=== PATIENT | female | born 1965 | race Caucasian/White ===

== ENCOUNTER 2024-07-08 23:47 | Inpatient (IN) | payer MEDICARE, OTHER, SELFPAY ==
[2024-07-08 21:04] VITALS: BP 148/89
[2024-07-08 21:27] LABS: % Basophils 0.2 % (0-2); % Immature Granulocytes 0.7 % (0-0.5); % Lymphocytes 28.6 % (20.5-51.1); % Monocytes 12.3 % (1.7-9.3); % Neutrophils 58.2 % (42.2-75.2); Absolute Lymphocytes 1.6 10^3/uL (1.2-3.4); Absolute Monocytes 0.7 10^3/uL (0.1-0.6); Absolute Neutrophils 3.2 10^3/uL (1.4-6.5); Hematocrit 26.7 % (37.0-47.0); Hemoglobin 9.4 g/dL (12.0-16.0); Mean Corp Hgb Conc. 35.2 g/dL (33.0-37.0); Mean Corpuscular Hgb 30.9 pg (27.0-31.0); Mean Corpuscular Volume 87.8 fL (81.0-99.0); Mean Platelet Volume 10.2 fL (7.4-10.4); Nucleated Red Blood Cells % 0 %; Platelet Count 236 10^3/uL (130-400); Red Blood Cell Count 3.04 10^6/uL (4.20-5.40); Red Cell Dist. Width 12.9 % (11.5-14.5); White Blood Cell Count 5.5 10^3/uL (4.8-10.8)
[2024-07-08 21:41] LABS: ALT (SGPT) 11 U/L (0-35); AST (SGOT) 23 U/L (14-36); Albumin 3.7 g/dl (3.5-5.0); Alkaline Phosphatase 54 U/L (38-126); Blood Urea Nitrogen 20 mg/dl (7-17); Calcium 9.8 mg/dl (8.4-10.2); Carbon Dioxide 25 mmol/L (22-30); Chloride 92 mmol/L (98-107); Glucose 106 mg/dl (70-99); Potassium 4.7 mmol/L (3.5-5.1); Sodium 125 mmol/L (135-145); Total Bilirubin 0.3 mg/dl (0.2-1.3); Total Protein 5.9 g/dl (6.3-8.2); eGFR 34.12
[2024-07-08 21:54] LABS: Troponin I < 0.012 ng/ml
[2024-07-08 22:06] VITALS: BMI 26.2
[2024-07-08 22:14] VITALS: BP 181/102
--- NOTE | 2024-07-08 22:46 | ED.GENMED ---
History of Present Illness
General
Chief Complaint: Blood Pressure Problem
Source: patient
Exam Limitations: none
Time Seen by Provider: 07/08/24 22:15
History of Present Illness
History of Present Illness:
59-year-old female presents complaining of fatigue and dizziness worsening over several days. She denies chest pain abdominal pain or shortness of breath. She was told recently by her doctor that her outpatient blood work was abnormal and the way
that she was anemic. She also is being followed for kidney dysfunction. She is not on anything for blood pressure. She is on psychiatric medications including Clozaril, Depakote, Klonopin.
Phy Exam
Physical Exam
Physical Exam:
General: Well-appearing female no acute respiratory distress
HEENT: Normocephalic atraumatic
Heart: Regular rate and rhythm no murmurs
Lungs: Clear no wheeze abdomen is soft nontender nondistended no guarding rebound normal bowel sounds
Extremities: No cyanosis or edema
Skin: Warm no rash
Course
Orders/Labs/Results
Orders:
Orders
07/08/24 21:08
Electrocardiogram (*1) Urgent
Reason for Study: Vertigo / Dizzy
07/08/24 21:09
EKG- Treatment ONCE
07/08/24 21:18
Type+Screen Urgent
Complete Blood Count/With Diff Urgent
Comprehensive Metabolic Panel Urgent
Serum Osmolality Urgent
Comment: ADD ON
Troponin I Urgent
07/08/24 22:28
Urine Sodium Urgent
07/08/24 22:29
Osmolality, Random Urine Urgent
07/08/24 22:36
Add On- LAB Urgent
Tests Added?: serum osmolality
Abnormal Lab Results
07/08/24
21:18
RBC 3.04 L 10^6/uL
(4.20-5.40)
Hgb 9.4 L g/dL
(12.0-16.0)
Hct 26.7 L %
(37.0-47.0)
Absolute Monos (auto) 0.7 H 10^3/uL
(0.1-0.6)
Immature Gran % 0.7 H %
(0-0.5)
Monocytes % 12.3 H %
(1.7-9.3)
Sodium 125 L mmol/L
(135-145)
Chloride 92 L mmol/L
(98-107)
BUN 20 H mg/dl
(7-17)
Creatinine 1.7 H mg/dL
(0.6-1.0)
Glucose 106 H mg/dl
(70-99)
Total Protein 5.9 L g/dl
(6.3-8.2)
07/08/24 21:18
07/08/24 21:18
Vital Signs
Initial and Last Documented VS:
Initial Vital Signs
Temp Pulse Resp BP Pulse Ox
98.3 F 99 18 148/89 99
07/08/24 21:04 07/08/24 21:04 07/08/24 21:04 07/08/24 21:04 07/08/24 21:04
Last Documented Vital Signs
Temp Pulse Resp BP Pulse Ox
98.3 F 88 12 148/89 99
07/08/24 21:04 07/08/24 22:11 07/08/24 22:11 07/08/24 21:04 07/08/24 22:11
MDM/Problems Addressed
Differential Diagnosis Includes:
Fatigue and weakness. Patient was told she was anemic as an outpatient. Differential could include anemia versus electrolyte abnormality versus worsening kidney function
Check labs. Sodium is 125 hemoglobin is 9.4 creatinine is 1.7. She is never been here before. Patient admits only drinking 3 regular bottles of water a day. Will check a urine sodium and osmolality as well as serum osmolality. Will fluid
restrict for now admit to hospital for hyponatremia
*Critical Care Note
Total Time (30-74mins, 75-104mins- exclusive of procedures): Not Applicable
ED Attending Note
-
Portions of this chart may have been created with voice recognition software.� Occasional wrong word or��sound alike� substitutions may have occurred due to the inherent limitations of voice recognition software.
Discharge Plan
Departure
Patient Disposition: Admit
Date of Disposition: 07/08/24
Time of Disposition: 22:51
Admit to: Telemetry
Presentation/result/management discussed w/ accepting MD/DO: Hospitalist
Discharge Problem:
Acute hyponatremia
Referrals:
Sergo Wright MD [Family Provider] -
Interventions
Interventions:
*Risk Screen - Suicide Last Done: 07/08/24 22:06
*General Assessment Last Done: 07/08/24 21:04
*Neglect/Abuse Screening Last Done: 07/08/24 22:06
ED- Fall Risk Assessment Last Done: 07/08/24 22:06
*ED COVID-19 Vaccine History Last Done: 07/08/24 22:06
ED- Cardiac Assessment Last Done: 07/08/24 22:06
ED- Neurological Assessment Last Done: 07/08/24 22:06
ED- Pulmonary Assessment Last Done: 07/08/24 22:06
Discharge Date and Time
Print Language: ITALIAN
[2024-07-08 23:00] VITALS: BP 178/98
[2024-07-08 23:10] LABS: Osmolality Serum 263 mOsm/kg (275-300)
--- NOTE | 2024-07-08 23:31 | W.PN.UPDATE ---
Update Note
Progress Note Update
Patient seen in conjunction with GAS ENGINE REPAIRER. Agree with findings on history and physical exam. Also agree with the assessment and plan unless stated otherwise.
Briefly this is a 59-year-old female with past medical history of schizoaffective disorder on multiple psychotropics and antidepressants, who also apparently has a history of orthostatic hypotension previously treated with Florinef and had been on
sodium chloride supplementation presents to the emergency department with episode of hypotension at home. Patient reports that cloth shrinking tester has been asking her to follow-up blood pressure. In the past she has had low episodes of blood pressure but
she did stop taking Florinef and sodium chloride not too long ago. She said her blood pressure has been rising and today was the highest it has been. That is why she came to the emergency department. She has a longstanding history of orthostatic
dizziness which she stays because only when she stands or walks. She reports Effexor was discontinued a couple days ago due to being on too many medications. She also reports that she has a pending workup for decreased kidney function with pending
ultrasound and labs. She follows with nephrology at this time.
In the emergency department she was hypertensive to 181/100, pulse of 77, temperature was 90.3 she satting 100% on room air. CBC was notable for a hemoglobin of 9.4 but otherwise unremarkable. Chemistries notable for a sodium of 125, BUN of 26 and
a creatinine of 1.7. Troponin is negative.
1. Hyponatremia - Likely chronic to subacute and given history of hypertension and antidepressant use suspect SIADH. She looks euvolemic.
- admit to telemetry
- urine osmolarity and sodium
- orthostatic vs, check cortisol, tsh and depakote levels
- if not orthostatic will fluid restrict to 1440ml free water daily
- nephrology consult
2. Hypertension - Rising BP for unclear reasons. Recently stopped florinef and salt tabs
- check orthostatic, if not orthostatic then will treat bp with low dose norvasc
- check albumin leel and u/a for proteinuria, no edema on exam so less likely nephrotic
3. Renal dysfunction - Known dysfunction with ongoing outpatient w/u and u/s pending
- u/a, urine protein,
- due to ongoing w/u will consult nephrology for additional testing
- avoid nephrotoxins
4. Psych
- continue her clozaril, depakote, klonopin, seroquel
5. Anemia - mild anemia Hgb 9.4. No history of gi bleed.
- w/u with iron studies, b12/folate
DVT PPX - lovenox sq
Full Code
--- NOTE | 2024-07-08 23:37 | HPS.HSE ---
Family Physician
-
Family Physician: Sergo Wright
Chief Complaint
-
Dizziness and Elevated Blood Pressure
History of Present Illness
Patient is a 59 y/o female past medical history of psychoaffective disorder who presents with dizziness and elevated blood pressure. Patient reports ongoing issues with dizziness which was initially associated with low pressures. She previously was
taking sodium tablets as well Florinef for low blood pressure, and what sounds like orthostatic hypotension. Patient notes about a month ago she stopped the sodium tablets and Florinef as her blood pressure has been running high. Patient reports
she recently started seeing a kidney specialist for kidney disease work-up, and had blood work done earlier this week. Patient reports she stopped her Effexor at the direction of her psychiatrist due to concerns of polypharmacy. Today her blood
pressure was more elevated than previously and she came to the emergency department for evaluation. Work-up revealed sodium level 125. Patient denies any prior known history of low sodium. She reports drinks about 56-64oz of fluid per day.
Medical History
Past Medical History
Past Medical History: Reports Other
Additional Past Medical History:
Psychoaffective Disorder
Chronic Kidney Disease
Chronic Anemia
Past Surgical History: Reports None
Social History
Tobacco: Former Smoker (Quit over 20 years ago)
Family History
Family History: Other (Sister: Anemia)
Allergies / Home Medications
Allergies reflects when Allergies were last updated in [employer].
Home Medications with original date entered in [employer]
Allergy/Medication List:
Allergies
Allergy/AdvReac Type Severity Reaction Status Date / Time
No Known Allergies Allergy Unverified 07/08/24 21:04
Home Medications
clonazepam 0.5 mg tablet (Klonopin) 0.5 mg PO DAILY 07/08/24
clozapine 100 mg tablet (Clozaril) 300 mg PO DAILY 07/08/24
clozapine 100 mg tablet (Clozaril) 500 mg PO HS 07/08/24
divalproex 500 mg tablet,delayed release (Depakote) 500 mg PO BID 07/08/24
quetiapine 400 mg tablet (Seroquel) 400 mg PO BID 07/08/24
Review of Systems
-
A 12 point ROS was completed and negative except as noted: Yes
Constitutional: Denies Fever or Chills
Respiratory: Denies Cough or Trouble Breathing
Cardiac: Denies Chest Pain or Palpitations
Abdomen/GI: Denies Abdominal Pain, Nausea or Vomiting
Physical Exam
Vital Signs
Vital Signs
Temp Pulse Resp BP Pulse Ox
98.3 F 77 15 178/98 100
07/08/24 21:04 07/08/24 23:15 07/08/24 23:15 07/08/24 23:00 07/08/24 23:15
Physical Exam
General: Comfortable and Conversant
HEENT: Anicteric and Moist mucous membranes
Respiratory: Clear and Non Labored Respirations
Cardiac: S1/S2 and Regular Rhythm
GI: Soft and Non Tender
Rectal: Deferred by Provider
Musculoskeletal: No Clubbing, No Cyanosis and No Edema
Skin: Warm and Dry
Neuro: Awake, Alert, Oriented and Nonfocal/grossly intact
Psych: Calm
Laboratory Results
-
07/08/24 21:18
07/08/24 21:18
Laboratory Results
Total Bilirubin 0.3 mg/dl (0.2-1.3) 07/08/24 21:18
AST 23 U/L (14-36) 07/08/24 21:18
ALT 11 U/L (0-35) 07/08/24 21:18
Alkaline Phosphatase 54 U/L (38-126) 07/08/24 21:18
Troponin I < 0.012 ng/ml 07/08/24 21:18
Data Reviewed
-
Lab Data: Labs Reviewed by me
Impression/Plan
-
Hyponatremia
-Reported symptoms seem more chronic than acute
-Check urine sodium, and urine osmo
-Check TSH, and AM Cortisol
-Fluid Restriction 48oz/day
-Recheck sodium in AM
-Consult Nephrology
Uncontrolled Hypertension
-Patient reports some symptoms of orthostasis
-Check orthostatic VS
-Consider starting oral antihypertensives if orthostatic VS are negative
Psychoaffective Disorder
-Recently stopped Effexor
-Continue clonazepam, clozapine, Depakote and Seroquel
Chronic Kidney Disease, unknown baseline
-Patient recently started seeing Nephrology to begin work-up
Normocytic Anemia
-Check iron studies, vitamin b12 and folic acid
DVT proph: SCDs
Code Status: Full Code
[2024-07-08 23:53] LABS: Iron 53 ug/dl (37-170)
[2024-07-08 23:59] LABS: Depakane 64.3 ug/ml (50.0-120.0)
[2024-07-09] VITALS (12 sets, daily range): BP systolic 94–192; BP diastolic 55–103; PULSE 88–97; O2SAT 100; BMI 25.2
[2024-07-09 00:02] LABS: Percent Saturation 17 % (20-50); Total Iron Binding Capacity 303 ug/dl (265-497)
[2024-07-09 00:30] LABS: Ferritin 49.3 ng/ml (11.1-264.0)
[2024-07-09 01:01] LABS: Folate 11.8 ng/ml (2.76-20); Vitamin B12 634 pg/ml (239-931)
--- NOTE | 2024-07-09 01:37 | PTCARENOTE ---
During her admission to the floor pt. stated that she was 'having chest pain which comes and goes sometimes.' EKG done per protocol which showed pt. was in NSR. Provider notifed. VSS and pt. is resting comfortably at this time. Plan of care
continues.
[2024-07-09 06:52] LABS: Hematocrit 27.7 % (37.0-47.0); Hemoglobin 9.7 g/dL (12.0-16.0); Mean Corpuscular Hgb 31.1 pg (27.0-31.0); Mean Corpuscular Volume 88.8 fL (81.0-99.0); Mean Platelet Volume 10.3 fL (7.4-10.4); Platelet Count 228 10^3/uL (130-400); Red Blood Cell Count 3.12 10^6/uL (4.20-5.40); Red Cell Dist. Width 12.8 % (11.5-14.5); White Blood Cell Count 7.6 10^3/uL (4.8-10.8)
[2024-07-09 07:18] LABS: Blood Urea Nitrogen 20 mg/dl (7-17); Calcium 9.8 mg/dl (8.4-10.2); Carbon Dioxide 26 mmol/L (22-30); Chloride 93 mmol/L (98-107); Estimated Creatinine Clearance 28 ml/min; Glucose 111 mg/dl (70-99); Potassium 3.8 mmol/L (3.5-5.1); Sodium 129 mmol/L (135-145); eGFR 34.12
[2024-07-09 07:51] LABS: Cortisol, Random 10.2 ug/dl; TSH Reflex To Free T4 2.29 uIU/ml (0.47-4.68)
[2024-07-09] MEDS: DEPAKOTE (12 HR RELEASE) 500 MG PO ×2 (08:44→20:49)
[2024-07-09] MEDS: KLONOPIN 0.5 MG PO (08:44)
[2024-07-09] MEDS: SEROQUEL 400 MG PO ×2 (08:44→20:49)
--- NOTE | 2024-07-09 09:48 | W.PN.HOSP.TC ---
Today's Communication/Plan
-
Monitor sodium. Nephrology consult
Assessment / Plan
Assessment / Plan
Physical Exam
General: Comfortable and Conversant
HEENT: Anicteric and Moist mucous membranes
Respiratory: Clear and Non Labored Respirations
Cardiac: S1/S2 and Regular Rhythm
GI: Soft and Non Tender
Rectal: Deferred by Provider
Musculoskeletal: No Clubbing, No Cyanosis and No Edema
Skin: Warm and Dry
Neuro: Awake, Alert, Oriented and Nonfocal/grossly intact
Psych: Calm
A/P:
Hyponatremia
-Reported symptoms seem more chronic than acute
-Check urine sodium, and urine osmo--> pending
-Check TSH, and AM Cortisol--> 2.29 and 10.2
-Fluid Restriction 48oz/day
-Recheck sodium in AM. Na 125-->129
-Consult Nephrology
Uncontrolled Hypertension
-Patient reports some symptoms of orthostasis
-Check orthostatic VS
-Consider starting oral antihypertensives if orthostatic VS are negative
Psychoaffective Disorder
-Recently stopped Effexor
-Continue clonazepam, clozapine, Depakote and Seroquel
Chronic Kidney Disease, unknown baseline
-Patient recently started seeing Nephrology to begin work-up
-Nephrology consulted
Normocytic Anemia
-Check iron studies, vitamin b12 and folic acid---> ferritin 49.3, saturation 17, TIBC 303, iron 53, B12 634, folate 11.8
DVT proph: SCDs
Code Status: Full Code
Anticipated Discharge: 24 - 48 hours
Subjective/Interval History
-
Date of Service: July 09, 2024
Denies cp or sob, n/v. No cp/sob
Objective Data
-
Labs:
Laboratory Results
07/09/24
06:29
WBC 7.6
Hgb 9.7 L
Hct 27.7 L
Plt Count 228
Sodium 129 L
Potassium 3.8
Chloride 93 L
Carbon Dioxide 26
BUN 20 H
Creatinine 1.7 H
Glucose 111 H
Calcium 9.8
Vital Signs:
Vital Signs
Temp Pulse Resp BP Pulse Ox
97.7 F 100 16 145/84 99
07/09/24 07:15 07/09/24 07:15 07/09/24 07:15 07/09/24 07:15 07/09/24 07:15
I&O
07/08/24 07/09/24 07/10/24
06:59 06:59 06:59
Intake Total 480 / 480
Balance 480 / 480
[2024-07-09] MEDS: CLOZARIL 300 MG PO (10:41)
--- NOTE | 2024-07-09 12:37 | W.CON.NEPH ---
Consultation
-
Date/Time Consultation Requested: 07/08/24 2330
Date/Time Consultation Performed: 07/09/24 1345
Requesting Provider: Jinny Yang
Performing Provider: Marian Cunningham
Reason for Consultation: hyponatremia, HTN, high cr
Medical History
-
Chief Complaint: dizziness, high BPs
History of Present Illness:
59 y/o female past medical history of psychoaffective disorder on multiple meds clozaril, klonopin, seroquel, depakote, chr hyponatremia on salt tab and FR who presents to ER with dizziness and elevated blood pressure 07/08. Patient reports ongoing
issues with dizziness associated with orthostatic hypotension and was on Florinef. Also has CKD last cr was 1.3 in 2021 lost f/u with nephro until recently seen in May with cr 1.9. Her BPs were high with out orthostatic and was recommended to see
her psychiatrist. She eventually came off Florinef, salt tab and Effexor. DUring this time her FR liberated to 48ounces/day for JORGE and normal sodium. She was noted to have fe def anemia and was to supposed to have IV fe infusion. Yesterday her
blood pressure was more elevated than previously and she came to the emergency department for evaluation. Work-up revealed sodium level 125. She reports drinks 48oz per day.
BP were as high as 190/100s improved to 150s with out meds. She placed on FR now her sodium at 129. Her cr noted at 1.7.
She offers no CP or sob, no KWAN. chr vision issues with no worsening. No n/v. No abd pain. Has mild difficulty to urinate on bed car but better on commode. no LE edema. no change in chr dizziness. He sodium in diet is not controlled since she eats
processed foods and can not cook.
Past Medical History
psychoaffective disorder
Chronic Kidney Disease
Chronic Anemia
Orthostatic hypotension
Chr hyponatremia
Past Surgical History: Other (tonsillectomy, endoscopy)
Social History
Tobacco: Former Smoker (quit 20 yrs ago)
Alcohol: None
Drug: None
Living: Alone (mother helps her)
Family History
sister anemia and CKD from Li
Allergies / Home Medications
Allergy/AdvReac Type Severity Reaction Status Date / Time
No Known Allergies Allergy Unverified 07/08/24 21:04
�Medication �Instructions �Recorded �Confirmed �Type
clonazepam 0.5 mg tablet (Klonopin) 0.5 mg PO DAILY Anxiety 07/08/24 07/08/24 History
clozapine 100 mg tablet (Clozaril) 300 mg PO DAILY Neurological 07/08/24 07/08/24 History
Condition
clozapine 100 mg tablet (Clozaril) 500 mg PO HS Neurological Condition 07/08/24 07/08/24 History
divalproex 500 mg tablet,delayed 500 mg PO BID Seizures 07/08/24 07/08/24 History
release (Depakote)
quetiapine 400 mg tablet (Seroquel) 400 mg PO BID Neurological 07/08/24 07/08/24 History
Condition
Review of Systems
-
All other complete ROS have been inquired and found negative other than state din HPI
Physical Exam
Vital Signs
Vital Signs
Temp Pulse Resp BP Pulse Ox
97.8 F 95 16 152/90 96
07/09/24 11:05 07/09/24 11:05 07/09/24 11:05 07/09/24 11:05 07/09/24 11:05
Lab Results
WBC 7.6 10^3/uL (4.8-10.8) 07/09/24 06:29
RBC 3.12 10^6/uL (4.20-5.40) L 07/09/24 06:29
Hgb 9.7 g/dL (12.0-16.0) L 07/09/24 06:29
Hct 27.7 % (37.0-47.0) L 07/09/24 06:29
Plt Count 228 10^3/uL (130-400) 07/09/24 06:29
Sodium 129 mmol/L (135-145) L 07/09/24 06:29
Potassium 3.8 mmol/L (3.5-5.1) 07/09/24 06:29
Chloride 93 mmol/L (98-107) L 07/09/24 06:29
Carbon Dioxide 26 mmol/L (22-30) 07/09/24 06:29
BUN 20 mg/dl (7-17) H 07/09/24 06:29
Creatinine 1.7 mg/dL (0.6-1.0) H 07/09/24 06:29
eGFR 34.12 07/09/24 06:29
Glucose 111 mg/dl (70-99) H 07/09/24 06:29
Calcium 9.8 mg/dl (8.4-10.2) 07/09/24 06:29
Albumin 3.7 g/dl (3.5-5.0) 07/08/24 21:18
Abnormal Lab Results
07/08/24 07/09/24
21:18 06:29
RBC 3.04 L 3.12 L
Hgb 9.4 L 9.7 L
Hct 26.7 L 27.7 L
MCH 31.1 H
Absolute Monos (auto) 0.7 H
Immature Gran % 0.7 H
Monocytes % 12.3 H
Sodium 125 L 129 L
Chloride 92 L 93 L
BUN 20 H 20 H
Creatinine 1.7 H 1.7 H
Glucose 106 H 111 H
Serum Osmolality 263 L
% Saturation 17 L
Total Protein 5.9 L
Physical Exam
General: Awake, Alert, Oriented, AOx3, No Distress and Nontoxic
HEENT: EOMI, Anicteric, Conjunctivae Clear, Neck Supple and No JVD
Respiratory: Clear, Normal Excursion and Nonlabored Respirations
Cardiac: S1/S2 and Regular Rate/Rhythm
Breast: Deferred by me
Abdomen: Soft, Nontender and Nondistended
Musculoskeletal: No Cyanosis and No Edema
Skin: No Rash
Neuro: Nonfocal/Grossly Intact
Psych: Mood/afflect pleasant, Insight/judgement good and Appropriate
Assessment/Plan
-
IMP:
Acute on chronic Hyponatremia
Uncontrolled Hypertension
JORGE with Chronic Kidney Disease [id number] -baseline not clear 1.3 in 2021-Dr Espinoza
h/o orthostasis was on Florinef
chr dizziness
schizoaffective Disorder-Recently stopped Effexor
Normocytic Anemia-fe def
SHPTH
Plan:
A/w dizziness and HTN
Pt follows me in the office but had lost f/u from 2021 until recently seen in May, cr was at 1.9, hb 9.5
her FR were lifted to 48ounces/day for JORGE
hyponatremia -improving with FR since admit, cont same , TSH and cortisol were ok
check U osmo, U na
JORGE-cr slightly better from before, unclear if she has progressive CKD
check UA, bladder scan, U CPR, UPEP with VANESSA
HTN- known orthostatic hypotension but lately high Bps
remains off florinef and effexor
neg orthostatic vitals, likely start low dose of BB
some of it could be from anxiety too
Anemia-check UPEP, out pt SPEP was neg
start IV fe course
she is on multiple psych meds, consider psych eval if possible
d/w pt and nursing
--- NOTE | 2024-07-09 15:02 | CM ---
Patient states that she lives alone in a triplex, was independent with adl's and ambulation, patient recently obtained a cane.
[facility]: [facility]
PCP: Dr. Wright
Plan; Home when stable, no needs.
[2024-07-09] MEDS: FERRLECIT 110 MG IV (16:47)
[2024-07-09 19:23] LABS: Urine Albumin Trace (Neg - Trace); Urine Bilirubin Negative (Negative); Urine Character Slightly Cloudy (Clear); Urine Color Yellow; Urine Glucose Negative (Negative); Urine Ketone Negative (Negative); Urine Leukocyte 2+ (Negative); Urine Nitrite Negative (Negative); Urine Occult Blood Negative (Negative); Urine Specific Gravity 1.015 (<1.030); Urine Urobilinogen Negative (Neg - 1+)
[2024-07-09 19:33] LABS: Osmolality Urine 463 mOsm/kg (300-900); Urine Red Blood Cell 0-2 /HPF (0-2)
[2024-07-09 19:34] LABS: Urine Calcium Oxalate Crystals Present; Urine White Cell 30-40 /HPF (0-5)
[2024-07-09 19:39] LABS: Urine Sodium 62 mmol/L (30-90)
[2024-07-09] MEDS: SEROQUEL PO (20:40)
[2024-07-09] MEDS: DEPAKOTE (12 HR RELEASE) PO (20:40)
[2024-07-09] MEDS: CLOZARIL 500 MG PO (20:42)
[2024-07-10] VITALS (7 sets, daily range): BP systolic 110–147; BP diastolic 60–89; PULSE 80–87; BMI 25.8
[2024-07-10 07:02] LABS: Hematocrit 25.5 % (37.0-47.0); Hemoglobin 8.8 g/dL (12.0-16.0); Mean Corp Hgb Conc. 34.5 g/dL (33.0-37.0); Mean Corpuscular Hgb 29.8 pg (27.0-31.0); Mean Corpuscular Volume 86.4 fL (81.0-99.0); Mean Platelet Volume 10.4 fL (7.4-10.4); Platelet Count 250 10^3/uL (130-400); Red Blood Cell Count 2.95 10^6/uL (4.20-5.40); Red Cell Dist. Width 13.2 % (11.5-14.5); White Blood Cell Count 6.9 10^3/uL (4.8-10.8)
[2024-07-10 07:33] LABS: Blood Urea Nitrogen 31 mg/dl (7-17); Calcium 9.1 mg/dl (8.4-10.2); Carbon Dioxide 23 mmol/L (22-30); Chloride 97 mmol/L (98-107); Estimated Creatinine Clearance 28 ml/min; Glucose 87 mg/dl (70-99); Potassium 4.8 mmol/L (3.5-5.1); Sodium 129 mmol/L (135-145); eGFR 34.12
[2024-07-10] MEDS: DEPAKOTE (12 HR RELEASE) 500 MG PO ×2 (08:07→19:56)
[2024-07-10] MEDS: CLOZARIL 300 MG PO (08:07)
[2024-07-10] MEDS: KLONOPIN 0.5 MG PO (08:07)
[2024-07-10] MEDS: FERRLECIT 110 MG IV (08:08)
[2024-07-10] MEDS: SEROQUEL 400 MG PO ×2 (08:08→19:57)
--- NOTE | 2024-07-10 09:05 | W.PN.HOSP.TC ---
Today's Communication/Plan
-
Psychiatry consult. Monitor sodium. IV iron.
Assessment / Plan
Assessment / Plan
Physical Exam
General: Comfortable and Conversant
HEENT: Anicteric and Moist mucous membranes
Respiratory: Clear and Non Labored Respirations
Cardiac: S1/S2 and Regular Rhythm
GI: Soft and Non Tender
Rectal: Deferred by Provider
Musculoskeletal: No Clubbing, No Cyanosis and No Edema
Skin: Warm and Dry
Neuro: Awake, Alert, Oriented and Nonfocal/grossly intact
Psych: Calm
A/P:
Hyponatremia
-Reported symptoms seem more chronic than acute
-Check urine sodium, and urine osmo--> 62 and 463 respectively
-Check TSH, and AM Cortisol--> 2.29 and 10.2
-Fluid Restriction 48oz/day
-Recheck sodium in AM. Na 125-->129
-Consult Nephrology appreciated and they recommended psychiatry evaluation in the setting of hyponatremia and CKD.
-Nephrology also ordered ultrasound of the kidney and appears to be unremarkable
Uncontrolled Hypertension
-Patient reports some symptoms of orthostasis
-Check orthostatic VS and negative so far
-Consider starting oral antihypertensives if orthostatic VS are negative--> also suspicion for anxiety related.
Psychoaffective Disorder
-Recently stopped Effexor
-Continue clonazepam, clozapine, Depakote and Seroquel--> nephrology requested psychiatry evaluation due to multiple medication in the setting of CKD and hyponatremia. Psychiatry consulted today-discussed with psych via [facility] text today.
Chronic Kidney Disease, unknown baseline
-Patient recently started seeing Nephrology to begin work-up
-Nephrology consulted
Normocytic Anemia
-Check iron studies, vitamin b12 and folic acid---> ferritin 49.3, saturation 17, TIBC 303, iron 53, B12 634, folate 11.8
-Started on IV iron
-Monitor hemoglobin
DVT proph: SCDs
Code Status: Full Code
Anticipated Discharge: 24 - 48 hours
Subjective/Interval History
-
Date of Service: July 10, 2024
Patient feels less dizzy. No chest pain or shortness of breath. No nausea or vomiting.
Objective Data
-
Labs:
Laboratory Results
07/10/24
06:35
WBC 6.9
Hgb 8.8 L
Hct 25.5 L
Plt Count 250
Sodium 129 L
Potassium 4.8 D
Chloride 97 L
Carbon Dioxide 23
BUN 31 H
Creatinine 1.7 H
Glucose 87
Calcium 9.1
Vital Signs:
Vital Signs
Temp Pulse Resp BP Pulse Ox
97.4 F 78 16 120/81 97
07/10/24 07:55 07/10/24 07:55 07/10/24 07:55 07/10/24 07:55 07/10/24 07:55
I&O
07/09/24 07/10/24 07/11/24
06:59 06:59 06:59
Intake Total 480 / 480 480 / 480
Output Total 550 / 550
Balance 480 / 480 -70 / -70
[2024-07-10] MEDS: SENOKOT 8.6 MG PO ×2 (10:52→19:57)
[2024-07-10] MEDS: DUPHALAC/CHRONULAC 20 GRAMS PO (10:52)
[2024-07-10] MEDS: MIRALAX 17 GRAMS PO ×2 (10:52→19:56)
--- NOTE | 2024-07-10 13:21 | W.PN.NEPH.PH ---
Today's Communication / Plan
-
see plan
Assessment/Plan
-
IMP:
Acute on chronic Hyponatremia
Uncontrolled Hypertension
JORGE with Chronic Kidney Disease [id number] -baseline not clear 1.3 in 2021-Dr Espinoza
h/o orthostasis was on Florinef
chr dizziness
schizoaffective Disorder-Recently stopped Effexor
Normocytic Anemia-fe def
SHPTH
Plan:
A/w dizziness and HTN
Pt follows me in the office but had lost f/u from 2021 until recently seen in May, cr was at 1.9, hb 9.5
hyponatremia -stable with FR since admit, add low dose salt tab that she was on before , TSH and cortisol were ok
high U osmo 463, U na 62-suggest SIADH, on Seroquel
JORGE-cr slightly better from before, unclear if she has progressive CKD
UA pyuria, aaron ox crsytals no h/o stone and non seen on US and no hydro
check U eosinophils-AIN differential not sure if her psych meds are any cause
she reports can not go off Clozaril
would suggest her psychiatrist to review all her meds
follow bladder scan, U CPR, pending UPEP with VANESSA
HTN- known orthostatic hypotension but lately high Bps
remains off florinef and effexor
BPs are now better with out meds suspect anxiety was cause of her high Bps earlier
neg orthostatic vitals
Anemia-pending UPEP, out pt SPEP was neg
started IV fe course
d/w pt and nursing
-
-
Date of Service: July 10, 2024
CC / HPI / ROS
-
Chief Complaint:
JORGE with CKD
History of Present Illness:
cr stable 1.7 but BUN up at 31
hb low 8.8, BP normal with out meds
Review of Systems:
no cp or sob
chr dizziness no change
no dyuria
Labs
-
Labs:
WBC 6.9 10^3/uL (4.8-10.8) 07/10/24 06:35
RBC 2.95 10^6/uL (4.20-5.40) L 07/10/24 06:35
Hgb 8.8 g/dL (12.0-16.0) L 07/10/24 06:35
Hct 25.5 % (37.0-47.0) L 07/10/24 06:35
Plt Count 250 10^3/uL (130-400) 07/10/24 06:35
Sodium 129 mmol/L (135-145) L 07/10/24 06:35
Potassium 4.8 mmol/L (3.5-5.1) D 07/10/24 06:35
Chloride 97 mmol/L (98-107) L 07/10/24 06:35
Carbon Dioxide 23 mmol/L (22-30) 07/10/24 06:35
BUN 31 mg/dl (7-17) H 07/10/24 06:35
Creatinine 1.7 mg/dL (0.6-1.0) H 07/10/24 06:35
eGFR 34.12 07/10/24 06:35
Glucose 87 mg/dl (70-99) 07/10/24 06:35
Calcium 9.1 mg/dl (8.4-10.2) 07/10/24 06:35
Albumin 3.7 g/dl (3.5-5.0) 07/08/24 21:18
Physical Exam
-
Vital Signs:
Vital Signs
Temp Pulse Resp BP Pulse Ox
98.1 F 83 18 115/70 99
07/10/24 11:34 07/10/24 11:34 07/10/24 11:34 07/10/24 11:34 07/10/24 11:34
Cardiovascular:: Regular rate and rhythm
Respiratory:: Bilateral: CTA
Lung Excursion:: Normal
Abdomen:: Nontender and Soft
Extremity Edema:: None: Bilateral:
Cain Catheter: No
[2024-07-10 14:01] LABS: Uric Acid 4.4 mg/dl (2.5-6.2)
[2024-07-10 15:08] LABS: Body Fluid for Eosinophils No Eosinophils seen
--- NOTE | 2024-07-10 16:36 | CON.MD ---
Consultation - Medical
-
59 yo F, presenting for hyponatremia (increased to 129 from 125, unremarkable U/S), w/ PMH of HTN, schizoaffective d/o, normocytic anemia & CKD (recently started working up). Psychiatry consulted to help manage psychotropics so as to minimize load
on kidneys.
Pt currently taking clozapine 300mgAM/500mg HS, depakote 500mg BID, seroquel 400mg BID & clonazepam 0.5mg daily. Reports long hx of psychosis with many inpatient admissions - describes self as 'institutionalized' for many years due to severity of
psychosis (AVH, delusions) as well as mood episodes. Reports hx of multiple medication trials with lack of adequate benefit. Says that it took many years to get on her current mix of medication and that since she started this particular mix she has
been stable and has been able to stay out of the hospital and live semi-independently. Pt says that 'they [the medications] changed my life, I can actually be independent'. Expresses anxiety about changing anything and risking decompensation given
how long it took to get to current level of symptom management.
She does report stopping Effexor about a week ago as psychiatrist thought it may have been causing anxiety - is not sure if stopping it helped as she has been feeling lightheaded & dizzy the past few weeks, as well as confused and unsteady on her
feet (has not been going out much because of this).
Discussed concerns regarding hyponatremia and potential contribution from psychotropics. Pt does note prior hx of hyponatremia and low BP - was taking salt tablets for a while which had been helping, however then caused increased BP and were
discontinued. She does note that her education associate told her she can take low dose salt tablets which may then allow for managing sodium levels without increasing BP excessively.
Past psych: extensive history, multiple inpatient admissions & medication trials (see above)
SH: Lives in semi-supportive housing - is able to do her own ADLs which she previously struggled with. Mom will usually drive her places and they go shopping together.
D&A: denies significant use
MSE: female, laying in hospital bed, fair eye contact, cooperative. Mood is OK, affect is appropriate. Denies SI/HI/AVH/delusions. Thought process is linear and logical. Memory not formally tested. AAOx3. Insight/judgement good.
Schizoaffective d/o as per hx
1. Continue current psychotropics - relatively significant risk of destabilizing pt given her extensive psychiatric hx with multiple medication trials and how long it took to stabilize symptoms. If at all possible, would trial lower dose of salt
tablet - if indeed SIADH as suspected, fluid restriction and salt can often be adequate. Did stress to pt to f/u with her outside psychiatrist about seeing if they can gradually decrease medication load, in particular seroquel she likely can
decrease with least amount of risk of destabilization though cannot predict fully.
[2024-07-10] MEDS: SODIUM CHLORIDE 0.5 GRAM PO (19:57)
[2024-07-10] MEDS: SAMSCA 7.5 MG PO (20:06)
[2024-07-10] MEDS: CLOZARIL 500 MG PO (21:06)
[2024-07-11] VITALS (8 sets, daily range): BP systolic 94–182; BP diastolic 63–100; PULSE 87–102; BMI 26.4
[2024-07-11 06:37] LABS: Hematocrit 27.3 % (37.0-47.0); Hemoglobin 9.3 g/dL (12.0-16.0); Mean Corp Hgb Conc. 34.1 g/dL (33.0-37.0); Mean Corpuscular Hgb 30.9 pg (27.0-31.0); Mean Corpuscular Volume 90.7 fL (81.0-99.0); Mean Platelet Volume 10.4 fL (7.4-10.4); Platelet Count 221 10^3/uL (130-400); Red Blood Cell Count 3.01 10^6/uL (4.20-5.40); Red Cell Dist. Width 13.2 % (11.5-14.5); White Blood Cell Count 6.8 10^3/uL (4.8-10.8)
[2024-07-11 06:46] LABS: Blood Urea Nitrogen 30 mg/dl (7-17); Calcium 9.6 mg/dl (8.4-10.2); Carbon Dioxide 24 mmol/L (22-30); Chloride 103 mmol/L (98-107); Estimated Creatinine Clearance 33 ml/min; Glucose 82 mg/dl (70-99); Potassium 5.2 mmol/L (3.5-5.1); Sodium 133 mmol/L (135-145); eGFR 36.69
[2024-07-11] MEDS: DEPAKOTE (12 HR RELEASE) 500 MG PO ×2 (10:08→20:38)
[2024-07-11] MEDS: SODIUM CHLORIDE 0.5 GRAM PO ×2 (10:08→20:36)
[2024-07-11] MEDS: KLONOPIN 0.5 MG PO (10:08)
[2024-07-11] MEDS: SENOKOT 8.6 MG PO ×2 (10:09→20:38)
[2024-07-11] MEDS: CLOZARIL 300 MG PO (10:09)
[2024-07-11] MEDS: MIRALAX 17 GRAMS PO ×2 (10:10→20:35)
[2024-07-11] MEDS: SEROQUEL 400 MG PO ×2 (10:10→20:38)
[2024-07-11] MEDS: FERRLECIT 110 MG IV (10:17)
--- NOTE | 2024-07-11 10:53 | W.PN.NEPH.PH ---
Today's Communication / Plan
-
stim test
Assessment/Plan
-
IMP:
Acute on chronic Hyponatremia
Uncontrolled Hypertension
JORGE with Chronic Kidney Disease [id number] -baseline not clear 1.3 in 2021-Dr Espinoza
h/o orthostasis was on Florinef
chr dizziness
schizoaffective Disorder-Recently stopped Effexor
Normocytic Anemia-fe def
SHPTH
Plan:
samsca today again
cosyntropin stim test
follow BMP
needs adjustment of psych meds, pt is resistant
may need to go back on florinef
-
-
Date of Service: July 11, 2024
CC / HPI / ROS
-
Chief Complaint:
JORGE with CKD
History of Present Illness:
cr stable 1.6
Na up to 133 with samsca
BP remains variable
hb low stable 9.3
Review of Systems:
no cp or sob
chr dizziness no change
no dyuria
Labs
-
Labs:
WBC 6.8 10^3/uL (4.8-10.8) 07/11/24 06:16
RBC 3.01 10^6/uL (4.20-5.40) L 07/11/24 06:16
Hgb 9.3 g/dL (12.0-16.0) L 07/11/24 06:16
Hct 27.3 % (37.0-47.0) L 07/11/24 06:16
Plt Count 221 10^3/uL (130-400) 07/11/24 06:16
Sodium 133 mmol/L (135-145) L 07/11/24 06:16
Potassium 5.2 mmol/L (3.5-5.1) H 07/11/24 06:16
Chloride 103 mmol/L (98-107) 07/11/24 06:16
Carbon Dioxide 24 mmol/L (22-30) 07/11/24 06:16
BUN 30 mg/dl (7-17) H 07/11/24 06:16
Creatinine 1.6 mg/dL (0.6-1.0) H 07/11/24 06:16
eGFR 36.69 07/11/24 06:16
Glucose 82 mg/dl (70-99) 07/11/24 06:16
Calcium 9.6 mg/dl (8.4-10.2) 07/11/24 06:16
Albumin 3.7 g/dl (3.5-5.0) 07/08/24 21:18
Physical Exam
-
Vital Signs:
Vital Signs
Temp Pulse Resp BP Pulse Ox
97.7 F 87 18 118/78 97
07/11/24 07:27 07/11/24 07:27 07/11/24 07:27 07/11/24 07:27 07/11/24 07:27
Cardiovascular:: Regular rate and rhythm
Respiratory:: Bilateral: Coarse
Lung Excursion:: Normal
Abdomen:: Nontender and Soft
Bowel Sounds:: Normal
Extremity Edema:: None: Bilateral:
[2024-07-11] MEDS: SAMSCA 7.5 MG PO (13:02)
--- NOTE | 2024-07-11 15:02 | W.PN.HOSP.TC ---
Today's Communication/Plan
-
see note
Assessment / Plan
Assessment / Plan
Acute Hyponatremia
-Check urine sodium, and urine osmo--> 62 and 463 respectively
-Check TSH, and AM Cortisol--> 2.29 and 10.2
-Fluid Restriction 48oz/day
-s/p tolvaptan dose by nephro, Na 133
-Nephrology evaluated and considering to do Cortical stimulation test
Supine hypertension
Orthostatic hypotension
-Patient on very high dose of clozapine 800mg/d - recommended high dose of 400mg/d
-Clozapine can give persistent orthostasis/dizziness issues
-Discussed this with patient who is hesitant to decrease the dose. I have strongly recommended patient to follow-up with primary psychiatry in [place] ([facility])
-Use compression stockings for now
-Use decreased dose IV labetalol for supine hypertension., Avoid hydralazine as vasodilator and will aggravate orthostasis. will consider starting small dose dahiana/arb if BP persistently remains high
Psychoaffective Disorder
-Recently stopped Effexor
-Continue clonazepam, clozapine, Depakote and Seroquel
-Patient on high dose of clozapine which needs to be slowly weaned off. Also on extreme high dose of Seroquel.
CKD-IIIB
-Patient recently started seeing Nephrology to begin work-up
-Nephrology consulted
Hyperkalemia
-increased K of 5.2 today
-low K diet
-will provide dose of Lokelma if needed
Normocytic Anemia
-vitamin b12 and folic acid---> ferritin 49.3, saturation 17, TIBC 303, iron 53, B12 634, folate 11.8
-Started on IV iron
DVT proph: SCDs
Code Status: Full Code
Total time spent : 53 mins
Anticipated Discharge: 24 - 48 hours
Subjective/Interval History
-
Date of Service: July 11, 2024
Patient living comfortably in bed
Worried about having dizziness/
Objective Data
-
Labs:
Laboratory Results
07/11/24
06:16
WBC 6.8
Hgb 9.3 L
Hct 27.3 L
Plt Count 221
Sodium 133 L
Potassium 5.2 H
Chloride 103
Carbon Dioxide 24
BUN 30 H
Creatinine 1.6 H
Glucose 82
Calcium 9.6
Vital Signs:
Vital Signs
Temp Pulse Resp BP Pulse Ox
98.1 F 90 18 182/97 99
07/11/24 11:11 07/11/24 11:11 07/11/24 11:11 07/11/24 11:11 07/11/24 11:11
I&O
07/10/24 07/11/24 07/12/24
06:59 06:59 06:59
Intake Total 480 / 480 1080 / 1080
Output Total 550 / 550
Balance -70 / -70 1080 / 1080
Review of Systems
-
Respiratory: Reports No Symptoms
Cardiac: Reports No Symptoms
Abdomen/GI: Reports No Symptoms
Physical Exam
-
General: No Apparent Distress and Comfortable
HEENT: Negative Oxygen
Respiratory: Clear to Auscultation
Cardiac: Regular Rhythm and S1/S2; Negative Murmur or Rub
GI: Soft, Nontender and Nondistended
Musculoskeletal: No Edema
Neuro: Awake, Alert, Oriented, No Motor Deficits and Nonfocal/Grossly Intact
Psych: Calm
--- NOTE | 2024-07-11 15:57 | CM ---
CM reviewed chart, discussed with Hospitalist, not clear for discharge today. Patient seen bedside, discussed PT/OT recommendations of home health. Patient declining at this time, does not feel she needs home therapy. Patient declines needs from CM
upon discharge, reports her mother will provide transportation home. CM will continue to follow for all discharge planning needs.
Plan; home no needs likely, declining VN.
[2024-07-11] MEDS: DULCOLAX 10 MG PO (20:35)
[2024-07-11] MEDS: CLOZARIL 500 MG PO (21:39)
[2024-07-12 03:34] VITALS: BP 148/68
[2024-07-12 06:00] VITALS: BMI 25.5
[2024-07-12 07:41] VITALS: BP 146/95
[2024-07-12] MEDS: CORTROSYN 0.25 MG IV (07:54)
[2024-07-12] MEDS: FERRLECIT 110 MG IV (08:13)
[2024-07-12] MEDS: SEROQUEL 400 MG PO (08:14)
[2024-07-12] MEDS: CLOZARIL 300 MG PO (08:14)
[2024-07-12] MEDS: MIRALAX 17 GRAMS PO (08:14)
--- NOTE | 2024-07-12 08:15 | PN.CDI ---
CDI
- -
CDI:
Physician Documentation Request
Admit Date: 07/08/24 23:47
Dear Doctor Weston,
Please review the following and provide your response in the progress notes.
Clinical Indicators:
- 07/11 PN 'Hyponatremia'
- 07/10 Nephrology 'Acute on chronic Hyponatremia'
- 'high U osmo 463, U na 62-suggest SIADH'
- Urine Na 62, Urine osmolality 463
- 07/10-07/11 Samsca x 2
In an attempt to clarify potentially conflicting documentation, please clarify the etiology of the low sodium:
SIADH
Hyponatremia
Other
Use of terms such as suspected, likely, concern for, or probable (associated with a specific diagnosis that is being evaluated, monitored, or treated as if it exists) are acceptable and can be coded in the inpatient setting, when documented at the
time of discharge.
Thank you,
Hunter Strong RN
CDI Specialist
Please use your independent medical judgment in providing your response.
[2024-07-12] MEDS: SODIUM CHLORIDE 0.5 GRAM PO (08:16)
[2024-07-12] MEDS: KLONOPIN 0.5 MG PO (08:16)
[2024-07-12] MEDS: DEPAKOTE (12 HR RELEASE) 500 MG PO (08:16)
[2024-07-12] MEDS: SENOKOT 8.6 MG PO (08:16)
[2024-07-12 08:28] LABS: Blood Urea Nitrogen 33 mg/dl (7-17); Calcium 9.4 mg/dl (8.4-10.2); Carbon Dioxide 22 mmol/L (22-30); Chloride 105 mmol/L (98-107); Estimated Creatinine Clearance 26 ml/min; Glucose 84 mg/dl (70-99); Sodium 139 mmol/L (135-145); eGFR 31.86
[2024-07-12] MEDS: TYLENOL 650 MG PO (08:34)
[2024-07-12 09:13] LABS: ACTH Stim Cortisol 0 Min 19.5 ug/dl
[2024-07-12] MEDS: DULCOLAX 10 MG RECTAL (09:44)
[2024-07-12 10:09] LABS: ACTH Stim Cortisol 60 Min 36.1 ug/dl
--- NOTE | 2024-07-12 10:45 | W.PN.UPDATE ---
Update Note
Progress Note Update
Patient seen at bedside, chart reviewed, discussed with RN and Hospitalist. Patient continues to c/o dizziness which 'has left me a prisoner in my own home' as she has not been able to go out much. Denies any depressive or anxiety symptoms. She does
admit the dizziness worries her. Denies any Si/SB, AH/VH, delusions, paranoia. Does not appear to respond to any internal stimuli. She tells me doctors are concerned with her medications and want to change them but 'if it were not for this
combination of meds, I would have never had a normal life'. She has not been hospitalized psychiatrically in over 10 years by her report. She has been on the current regimen of Seroquel and Clozaril since that time by her report. Denies any recent
med or dose changes. She does not smoke. Did recently have Effexor discontinued. Does not recall last time she has had a Clozaril level has been done but is compliant with her routine ANC monitoring. She is treated by [facility].
Impression/Recommendation: Schizoaffective disorder, stable on current med regimen - I do agree her doses of Seroquel and Clozaril are quite high but considering her extensive psychiatric history, I do not feel this is the time or place to make
changes to that regimen and she should f/u with her OP prescriber once medically stable to consider adjustments if medically required. We could obtain a Clozaril level however, these take days to be resulted.
[2024-07-12 11:00] LABS: ACTH Stim Cortisol 30 Min 26.5 ug/dl
--- NOTE | 2024-07-12 11:05 | W.PN.NEPH.PH ---
Today's Communication / Plan
-
follow BMP
Assessment/Plan
-
IMP:
Acute on chronic Hyponatremia
Uncontrolled Hypertension
JORGE with Chronic Kidney Disease [id number] -baseline not clear 1.3 in 2021-Dr Espinoza
h/o orthostasis was on Florinef
chr dizziness
schizoaffective Disorder-Recently stopped Effexor
Normocytic Anemia-fe def
SHPTH
Plan:
follow BMP
needs adjustment of psych meds, pt is resistant, says clozapine is not causing orthostasis
TEDs
-
-
Date of Service: July 12, 2024
CC / HPI / ROS
-
Chief Complaint:
JORGE with CKD
History of Present Illness:
cr stable 1.8
Na up to 139 with samsca
BP remains variable
K better at 5
cosyntropin stim test normal
hgb low stable
Review of Systems:
no cp or sob
chronic dizziness no change
Labs
-
Labs:
WBC 6.8 10^3/uL (4.8-10.8) 07/11/24 06:16
RBC 3.01 10^6/uL (4.20-5.40) L 07/11/24 06:16
Hgb 9.3 g/dL (12.0-16.0) L 07/11/24 06:16
Hct 27.3 % (37.0-47.0) L 07/11/24 06:16
Plt Count 221 10^3/uL (130-400) 07/11/24 06:16
Sodium 139 mmol/L (135-145) 07/12/24 06:13
Potassium 5.0 mmol/L (3.5-5.1) 07/12/24 06:13
Chloride 105 mmol/L (98-107) 07/12/24 06:13
Carbon Dioxide 22 mmol/L (22-30) 07/12/24 06:13
BUN 33 mg/dl (7-17) H 07/12/24 06:13
Creatinine 1.8 mg/dL (0.6-1.0) H 07/12/24 06:13
eGFR 31.86 07/12/24 06:13
Glucose 84 mg/dl (70-99) 07/12/24 06:13
Calcium 9.4 mg/dl (8.4-10.2) 07/12/24 06:13
Albumin 3.7 g/dl (3.5-5.0) 07/08/24 21:18
Physical Exam
-
Vital Signs:
Vital Signs
Temp Pulse Resp BP Pulse Ox
98.5 F 84 18 146/95 97
07/12/24 07:41 07/12/24 07:41 07/12/24 07:41 07/12/24 07:41 07/12/24 07:41
Cardiovascular:: Regular rate and rhythm
Respiratory:: Bilateral: CTA
Lung Excursion:: Normal
Abdomen:: Nontender and Soft
Bowel Sounds:: Normal
Extremity Edema:: None: Bilateral:
[2024-07-12 11:15] VITALS: BP 132/84; BP 140/90; BP 146/99; PULSE 85; PULSE 92; PULSE 99
[2024-07-12 11:25] VITALS: BP 134/89
--- NOTE | 2024-07-12 12:06 | CM ---
Addendum entered by Liliana Patiño 07/12/24 12:40:
Patient seen bedside, reports she spoke with Hospitalist, agreeable to discharge. Patient refusing to sign IMM, placed in chart, patient provided with copy. Patient reports mother will provide transportation home around 3:00 p.m.
Original Note:
CM met with patient, discussed plan for discharge today. Patient reports she has transportation from her mother who is awaiting patients call. CM reviewed IMM, patient reports she feels dizzy and does not feel comfortable going home. Patient
requesting to speak to Hospitalist. CM discussed with patients nurse, TT to Hospitalist.
Plan; home no needs.
[2024-07-12] MEDS: DULCOLAX 10 MG PO (12:38)
--- NOTE | 2024-07-12 13:17 | W.PN.HOSP.TC ---
Addendum entered and electronically signed by Floyd Ontiveros MD 07/14/24 15:05:
In response to CDI query
Possible hyponatremia from SIADH
Original Note:
Today's Communication/Plan
-
d/c home
Assessment / Plan
Assessment / Plan
Acute Hyponatremia
-Check urine sodium, and urine osmo--> 62 and 463 respectively
-Check TSH, and AM Cortisol--> 2.29 and 10.2
-Fluid Restriction 48oz/day
-s/p tolvaptan dose by nephro, Na 133
-Nephrology evaluated and considering to do Cortical stimulation test
-Cosyntropin stimulation test negative
Supine hypertension
Orthostatic hypotension
-Patient on very high dose of clozapine 800mg/d - recommended high dose of 400mg/d
-Clozapine can give persistent orthostasis/dizziness issues
-Discussed this with patient, apparently patient said she has been taken off Effexor and hoping this would help the situation.
-Use compression stockings for now
Psychoaffective Disorder
-Recently stopped Effexor
-Continue clonazepam, clozapine, Depakote and Seroquel
-Patient on high dose of clozapine which needs to be slowly weaned off. Also on extreme high dose of Seroquel.
CKD-IIIB
-Patient recently started seeing Nephrology to begin work-up
-Nephrology consulted
Hyperkalemia - resolved
Normocytic Anemia
-vitamin b12 and folic acid---> ferritin 49.3, saturation 17, TIBC 303, iron 53, B12 634, folate 11.8
-Started on IV iron
DVT proph: SCDs
Code Status: Full Code
More than 30 minutes spent in discharge including
Final examination of the patient
Summarizing hospital stay
Instructions for continuing care to all relevant caregivers
Preparation of discharge records, prescriptions, and referral forms
Total time spent (in minutes): 38 mins
Anticipated Discharge: Today
Subjective/Interval History
-
Date of Service: July 12, 2024
continues to feel dizzy
no other issues
Objective Data
-
Labs:
Laboratory Results
07/12/24
06:13
Sodium 139
Potassium 5.0
Chloride 105
Carbon Dioxide 22
BUN 33 H
Creatinine 1.8 H
Glucose 84
Calcium 9.4
Vital Signs:
Vital Signs
Temp Pulse Resp BP Pulse Ox
98.8 F 92 20 134/89 98
07/12/24 11:25 07/12/24 11:25 07/12/24 11:25 07/12/24 11:25 07/12/24 11:25
I&O
07/11/24 07/12/24 07/13/24
06:59 06:59 06:59
Intake Total 1080 / 1080 1620 / 1620
Balance 1080 / 1080 1620 / 1620
Review of Systems
-
Respiratory: Reports No Symptoms
Cardiac: Reports No Symptoms
Abdomen/GI: Reports No Symptoms
Physical Exam
-
General: Obese; Negative Appears Chronically Ill
HEENT: Negative Oxygen
GI: Soft, Nontender and Nondistended
Neuro: Awake, Alert and Oriented
[2024-07-12 16:10] VITALS: BP 134/89
[2024-07-12 22:48] LABS: 24 Hour Urine Total Volume Not Provided mL; Urine Collection Length Not Provided hr; Urine Free Kappa Light Chains 96.13 mg/L (0.00-32.90); Urine Free Lambda Light Chains 12.03 mg/L (0.00-3.79)
--- NOTE | 2024-07-13 18:42 | W.DCSUMMARY ---
Discharge Summary
Discharge Data
Date of Admission: 07/08/24
Date of Discharge: 07/12/24
-
Pending Results: No
Hospital Course
Discharging Physician : Dr Floyd Ontiveros
Disposition : Home
Primary care physician : Dr Sergo Wright
Principal Discharge diagnosis :
Euvolemic hyponatremia
Orthostatic hypotension
Supine hypertension
Chronic Discharge diagnosis :
Psychoaffective disorder
Chronic kidney disease stage IIIb
Normocytic anemia
Hospital Course :
Patient is a 59-year-old female with mentioned past medical history came to ER for having ongoing dizziness. Patient have problem with persistent orthostatic hypotension and has been taking sodium pills. Patient was also on Florinef which has been
stopped as patient was hypertensive. In ER blood workup showing patient have hyponatremia with blood sodium 125. Urine electrolytes showing urine sodium of 62 and urine osmolality of 463. TSH was within normal limit. Cortisol was borderline low.
A follow-up ACTH stimulation test ruled out any cortisol deficiency. Nephrology was involved in care and patient required dose of tolvaptan. Patient was maintained on fluid restriction as well. At discharge patient blood sodium was 133.
Patient continued to have orthostatic hypotension and supine hypertension. Medication review showing patient on significantly high dose of clozapine with Seroquel both of medications are known to give orthostatic hypotension. This was discussed
with patient although patient adamant about not being stopped off of this medication as patient is on this medication for many years. I have asked patient to follow-up with psychiatry and discuss this issue although per patient psychiatrist does
not think her psych regimen is causing her orthostatic hypotension. Unfortunately at this point I do not have a way of helping the patient without her being tried on a different psych regimen. Patient advised to use compression stockings during
daytime.
Important imaging findings :
None
Procedure findings :
None
Discharge Plan
-
Patient Disposition: Home (Routine Discharge)
Discharge Diagnosis/Procedures: Clozapine related orthostatic hypotension, Hyponatremia, Hyperkalemia
Condition: Fair
Diet: Regular
Activity: As tolerated
Driving Restrictions: As prior to admission
Bathing Restrictions: OK to Shower
Activity Restrictions/Additional Instructions:
Please discuss with your Psychiatrist about Clozapine related orthostatic hypotension
Use compression stockings during day time.
Referrals:
Sergo Wright MD [Family Provider] - in one week
Prescriptions:
New
ferrous sulfate 325 mg (65 mg iron) tablet
325 mg PO DAILY Qty: 30 0RF
Continued
clozapine [Clozaril] 100 mg Tablet
300 mg PO DAILY
Rx Instructions:
300mg in AM 500mg at night
clozapine [Clozaril] 100 mg Tablet
500 mg PO HS
clonazepam [Klonopin] 0.5 mg Tablet
0.5 mg PO DAILY
divalproex [Depakote] 500 mg Tablet,Delayed Release (Dr/Ec)
500 mg PO BID
quetiapine [Seroquel] 400 mg Tablet
400 mg PO BID
Discharge Orders:
Discharge Patient (As Directed); Ordered 07/12/24
Ordered By: Floyd Ontiveros
Discharge Date and Time
Discharge Date/Time: 07/12/24 17:27
Print Language: FAROESE
== END 2024-07-12 17:27 | disposition home or self-care (01) | DRG 644 ==
LOC: 4 WEST ACU 23:47
PROVIDERS: Emergency Medicine; Hospitalist; Physician Assistant; Physician Assistant Medical; Specialist; ADMITTING PHYSICIAN Internal Medicine; ATTENDING PHYSICIAN Hospitalist; CONSULT PHYSICIAN Internal Medicine; CONSULT PHYSICIAN Psychiatry & Neurology Psychiatry; EMERGENCY PHYSICIAN Emergency Medicine; FAMILY PHYSICIAN Family Medicine
DX: E22.2 Syndrome of inappropriate secretion of antidiuretic hormone (principal); N17.9 Acute kidney failure, unspecified; Z87.891 Personal history of nicotine dependence; N18.9 Chronic kidney disease, unspecified; I12.9 Hypertensive chronic kidney disease with stage 1 through stage 4 chronic kidney disease, or unspecified chronic kidney disease; D50.9 Iron deficiency anemia, unspecified; F25.9 Schizoaffective disorder, unspecified; F41.9 Anxiety disorder, unspecified; I95.1 Orthostatic hypotension; E87.5 Hyperkalemia
CPT/HCPCS: 76770; 80048; 80053; 80164; 81003; 81015; 81099; 82533; 82607; 82728; 82746; 83521; 83540; 83550; 83930; 83935; 84156; 84300; 84443; 84484; 84550; 85025; 85027; 86335; 86850; 86900; 86901; 93005; 97110; 97116; 97163; 97166; 99284; J2916